=== PATIENT | female | born 1940 | race American Indian/Alaskan Native ===

== ENCOUNTER 2017-10-30 07:27 | Day surgery (SDC) | payer MEDICARE ==
[~2017-10-30 07:27] MED LIST: ANCEF/STERILE WATER 2 GM/20 ML 2 GM/20 ML SYRINGE IV NR; NACL 0.9% 1000 ML 1,000 ML IV SCH
[2017-10-30 08:35] LABS: Basophils % (Auto) 0.1 % (0.0-1.8); Eosinophils # (Auto) 0.1 K/mm3 (0.0-0.4); Eosinophils % (Auto) 0.8 % (0.0-4.3); Hematocrit 34.4 % (30.3-42.9); Hemoglobin 11.1 gm/dl (10.1-14.3); Lymphocytes % (Auto) 10.4 % (13.4-35.0); Mean Corpuscular HGB Conc 32 % (30-34); Mean Corpuscular Hemoglobin 31 pg (28-32); Mean Corpuscular Volume 97 fl (79-97); Monocytes # (Auto) 1.1 K/mm3 (0.0-0.8); Monocytes % (Auto) 11.1 % (0.0-7.3); Platelet Count 260 K/mm3 (140-440); Red Blood Count 3.57 M/mm3 (3.65-5.03); Red Cell Distribution Width 17.8 % (13.2-15.2)
[2017-10-30 08:47] LABS: Calcium 9.1 mg/dL (8.4-10.2)
[2017-10-30 09:08] LABS: INR 1.02 (0.87-1.13); Partial Thromboplastin Time 25.3 Sec. (24.2-36.6)
[2017-10-30] MEDS ORDERED: HEPARIN/NS 5000 UNIT/500ML(CATH LAB) 500 ML IR ONE (10:22)
[2017-10-30] MEDS ORDERED: NACL 0.9% 250ML 250 ML ONE (10:22)
[2017-10-30] MEDS ORDERED: HEPARIN 10,000 UNITS/10 ML ONE (10:22)
[2017-10-30] MEDS ORDERED: ANCEF/STERILE WATER 2 GM/20 ML 2 GM/20 ML SYRINGE IV ONE (10:29)
[2017-10-30] MEDS: VERSED ONE ×2 (10:42→11:07)
[2017-10-30] MEDS ORDERED: XYLOCAINE 2% INFILTRATI ONE (10:42)
[2017-10-30] MEDS: SUBLIMAZE ONE ×3 (10:42→11:09)
--- NOTE | 2017-10-30 11:20 | Short Stay Summary ---
Short Stay Documentation Date of service: 10/30/17 - History Principal diagnosis: dialysis access malfunction H&P: obtained from office - Allergies and Medications Current Medications: Allergies No Known Allergies Allergy (Unverified 10/30/17 07:27) Home Medications Medication Instructions Recorded Confirmed Last Taken Type ALBUTEROL Inhaler(NF) [VENTOLIN 1 puff IH TID 10/30/17 10/30/17 10/29/17 History Inhaler(NF)] Aspirin [Lo-Dose Aspirin EC] 81 mg PO DAILY 10/30/17 10/30/17 10/29/17 History AtorvaSTATin [Lipitor] 80 mg PO QHS 10/30/17 10/30/17 10/29/17 History B Complex 11/Folic/C/Biot/Zinc 1 each PO DAILY 10/30/17 10/30/17 10/29/17 History [Dialyvite with Zinc Tablet] Clopidogrel Bisulfate [Clopidogrel] 75 mg PO DAILY 10/30/17 10/30/17 10/29/17 History Metoprolol [Lopressor TAB] 25 mg PO BID 10/30/17 10/30/17 10/29/17 History Rivastigmine [Exelon] 1 each TD DAILY 10/30/17 10/30/17 10/29/17 History Active Medications Cefazolin Sodium (Ancef/Sterile Water 2 Gm/20 Ml) 2 gm in 20 mls @ 80 mls/hr IV PREOP NR PRN Reason: Protocol Stop: 10/30/17 23:59 Last Admin: 10/30/17 10:46 Dose: 20 mls Sodium Chloride (Nacl 0.9% 1000 Ml) 1,000 mls @ 42 mls/hr IV DIRECT MARIAH - Brief post op/procedure progress note Date of procedure: 10/30/17 Pre-op diagnosis: dialysis access malfunction Post-op diagnosis: same Procedure: FGA, venoplasty, central venoplasty, catheter removal Anesthesia: local Surgeon: MIRELLA HAYDEN Estimated blood loss: minimal Pathology: none Condition: stable - Disposition Condition at discharge: Good Disposition: [id number] TO HOME OR SELFCARE Short Stay Discharge Plan Activity: advance as tolerated Weight Bearing Status: Weight Bear as Tolerated Diet: renal Wound: keep clean and dry, per your surgeon's advice Follow up with: ALISON PEPPER MD [Primary Care Provider] - 7 Days
--- NOTE | 2017-10-30 11:26 | Operative Report ---
Operative Report Operative Report: EXAM: TUNNELED HEMODIALYSIS CATHETER REMOVAL, CENTRAL VENOPLASTY, FISTULOGRAM WITH PERIPHERAL VENOPLASTY CLINICAL INDICATION: PATIENT WITH A HISTORY OF END-STAGE RENAL DISEASE ON HEMODIALYSIS FROM A LEFT UPPER ARM AV FISTULA. THE FISTULA HAS POOR FLOW. ADDITIONALLY, THE PATIENT HAS AN INDWELLING PERMCATH WHICH IS NO LONGER NEEDED AND A CENTRAL VENOUS STENOSIS DATE: 10/30/2017 PROCEDURE: Following an explanation of the risks, benefits and alternatives; written informed consent was obtained. The patient was brought to the angiographic suite and placed in supine position on the examination table. Her indwelling chest wall tunneled hemodialysis catheter and fistula were prepped and draped in the usual sterile fashion. 1% lidocaine was used for anesthesia at the catheter exit site and along the tunnel tract. Using accommodation of sharp and blunt dissection, the catheter cuff was dissected free. A 0.035 guidewire was advanced through the catheter and advanced into the IVC under fluoroscopy to document intravenous positioning and for anchoring. The catheter was then removed intact. An 8 Brazilian sheath was then advanced over the guidewire and the trocar removed. Contrast was injected through the sheath which demonstrates approximately 80% stenosis involving the innominate vein. A 10 mm x 60 mm Lutonix drug-coated balloon was then advanced across the lesion and deployed. The balloon was deployed 48 wili for 3 minutes. Postplacement imaging demonstrated reduction of the stenosis to less than 20%. At this point, access of the fistula was obtained using a 7 cm 21-gauge needle directed towards the venous outflow. A 0.018 guidewire was advanced through the needle and the needle exchanged for a micro-sheath. Contrast was injected through the micro-sheath was demonstrated a patent fistula distal to the access site. With occlusion of the fistula reflux views were obtained which demonstrated a 80% stenosis involving the proximal aspect of the fistula at the cannulation site. Accessed towards the fistula was then obtained towards the arterial anastomosis using a 7 cm 21-gauge needle. A 0.018 guidewire was advanced through the needle and the needle exchanged for a micro-sheath. The 0.018 guidewire was exchanged for a 0.035 guidewire and the micro-sheath exchanged for a 6 Brazilian vascular sheath. The guidewire was advanced through the arterial anastomosis of the brachial artery. A 4 Brazilian vertebral catheter was then advanced over the guidewire and imaging obtained. This demonstrates moderate stenosis involving the arterial anastomosis of approximately 20-30%. There is an approximately percent stenosis involving the proximal fistula at the cannulation site. The guidewire was inserted and the vertebral catheter removed. Angioplasty of the stenosis was then performed using a 6 mm balloon insufflated to 8 wili for 60 seconds. Octavio plasty imaging demonstrated brisk flow throughout the fistula. The cannulation sites within the fistula were closed using 4-0 Vicryl suture and Dermabond. Hemostasis was achieved at the permanent cath exit site using manual compression. Sterile dressings were then applied to all 3 access sites. The patient tolerated the procedure well. There were no immediate post procedure complications. Conscious sedation was performed under the guidance of radiologic nursing. Continuous cardiopulmonary monitoring was utilized. IMPRESSION: 1) Left internal jugular vein tunneled hemodialysis catheter removal. 2) Central venography demonstrating 80% stenosis involving the innominate vein. 3) disease venoplasty of the innominate vein with a drug- coated balloon. 3) Fistulogram with bidirectional access demonstrating 80% stenosis involving the proximal fistula and 20-30% stenosis involving the arterial anastomosis. 4) Venoplasty of the peripheral segment at the proximal fistula as described with brisk flow at the conclusion of the procedure.
[2017-10-30 12:19] VITALS: BP 180/60
== END 2017-10-30 12:40 | disposition home or self-care (01) ==
LOC: CATHLABREC 07:27
PROVIDERS: ATTEND Radiology Diagnostic Radiology
DX: T82.590A Other mechanical complication of surgically created arteriovenous fistula, initial encounter (principal); I13.2 Hypertensive heart and chronic kidney disease with heart failure and with stage 5 chronic kidney disease, or end stage renal disease; E11.22 Type 2 diabetes mellitus with diabetic chronic kidney disease; N18.6 End stage renal disease; I50.9 Heart failure, unspecified; J44.9 Chronic obstructive pulmonary disease, unspecified; E78.00 Pure hypercholesterolemia, unspecified; Z79.899 Other long term (current) drug therapy; Z79.82 Long term (current) use of aspirin; Z85.118 Personal history of other malignant neoplasm of bronchus and lung; Z98.890 Other specified postprocedural states; Z79.84 Long term (current) use of oral hypoglycemic drugs
CPT/HCPCS: 36415; 36589; 36902; 36907; 80048; 85025; 85610; 85730; 99156; 99157; C1725; C1751; C1769; C1894; J0690; J1644; J2250; J3010; J7050; Q9967